=== PATIENT | female | born 1965 | race Caucasian/White ===

== ENCOUNTER → 2016-04-25 | Outpatient (CLI) | payer MEDICARE, OTHER ==
--- NOTE | 2016-04-25 12:30 | REPMRS ---
Patient History The patient states she has not had a clinical breast exam in over a year. Patient is postmenopausal and is nulliparous. No known family history of cancer. Benign ultrasound-guided core biopsy of the left breast, 1994. Digital Woman Screen Mammo: April 25, 2016 - Exam #: [id number] Bilateral CC and MLO view(s) were taken. Technologist: Nicole Sumner, Technologist Prior study comparison: December 26, 2014, digital woman screen mammo performed at [facility]. March 13, 2012, digital woman screen mammo performed at [facility]. December 30, 2010, bilateral bilat screen digital mammo performed at [facility]. FINDINGS: There are scattered fibroglandular densities. There has been no change in the appearance of the mammogram from the prior studies. There is a needle biopsy marker clip in the left breast. There is a mild amount of scattered fibroglandular density which is fairly symmetric. There is no interval development of dominant mass, architectural distortion, or clustered microcalcification suggestive of malignancy. ASSESSMENT: BI-RADS/ACR category 1 mammogram. Negative. Recommendation Routine screening mammogram in 1 year (for women over age 40). This mammogram was interpreted with the aid of an FDA-approved computer-aided dectection system. Electronically Signed By: Cosme Thorpe MD 04/25/16 [id number]
== END ==
LOC: M WHC 10:12
PROVIDERS: ATTEND Internal Medicine
DX: Z12.31 Encounter for screening mammogram for malignant neoplasm of breast (principal); Z78.0 Asymptomatic menopausal state; Z92.89 Personal history of other medical treatment

== ENCOUNTER 2016-04-30 17:32 | Emergency (ER) | payer OTHER, MEDICARE ==
[~2016-04-30] VITALS: Ht 152.4 cm; Wt 113.4 kg
[2016-04-30] MEDS ORDERED: VITA-115 PO (18:04)
[2016-04-30] MEDS ORDERED: MULT1TAB9 PO (18:04)
[2016-04-30] MEDS ORDERED: TYLE325T5 PO (18:05)
[2016-04-30 19:42] VITALS: BP 120/78
--- NOTE | 2016-05-01 11:12 | REP ---
RIGHT FIRST DIGIT: Four views of the right first digit are performed. There is no acute fracture or dislocation. There is severe joint space narrowing with mild subchondral sclerosis and spurring at the interphalangeal joint. IMPRESSION: Degenerative changes without fracture or dislocation. Signed by Gage Hightower MD 05/01/2016 01:56 P
== END 2016-04-30 19:45 | disposition home or self-care (01) ==
LOC: M ED 19:39
DX: S62.501A Fracture of unspecified phalanx of right thumb, initial encounter for closed fracture (principal); W22.8XXA Striking against or struck by other objects, initial encounter; Y92.89 Other specified places as the place of occurrence of the external cause; Y93.G1 Activity, food preparation and clean up; Y99.0 Civilian activity done for income or pay; Z88.8 Allergy status to other drugs, medicaments and biological substances; Z88.0 Allergy status to penicillin

== ENCOUNTER 2016-11-30 11:48 | Emergency (ER) | payer MEDICARE, OTHER ==
[~2016-11-30] VITALS: Ht 152.4 cm; Wt 113.6 kg
[~2016-11-30 11:48] MED LIST: MULT1TAB9 PO; TYLE325T5 PO; VITA-115 PO
[2016-11-30] MEDS ORDERED: MELO7.5T7 (11:57)
--- NOTE | 2016-11-30 12:48 | REP ---
Right foot series: Four views. History: Pain. Findings: Four views of the right foot show plantar and Achilles calcaneal spurring. Overall mineralization pattern is normal. No fracture or subluxation is seen. Impression: Heel spurs. Otherwise negative. Signed by Rian Thorpe MD 11/30/2016 01:26 P
--- NOTE | 2016-11-30 12:49 | REP ---
Right ankle series: Four views. History: Pain. Findings: Four views of the right ankle demonstrate Achilles and calcaneal spurring. Ankle mortise is intact. No fracture is seen. Impression: No acute bony abnormality. Heel spurs. Signed by Rian Thorpe MD 11/30/2016 01:27 P
[2016-11-30] MEDS ORDERED: NORCO, ANEXSIA 5/325MG TABLET (HYDROcodone/ACETAMINOPHEN) PO ONE (14:00)
[2016-11-30 14:42] VITALS: BP 142/63
== END 2016-11-30 14:46 | disposition home or self-care (01) ==
LOC: M ED 11:48
DX: M72.2 Plantar fascial fibromatosis (principal); Z87.891 Personal history of nicotine dependence

== ENCOUNTER → 2017-07-31 | Outpatient (CLI) | payer MEDICARE | LOC: M WHC 13:01 | DX: Z12.31 Encounter for screening mammogram for malignant neoplasm of breast (principal); Z78.0 Asymptomatic menopausal state; R92.1 Mammographic calcification found on diagnostic imaging of breast | CPT/HCPCS: 77067 ==

== ENCOUNTER 2017-08-07 21:45 | Emergency (ER) | payer OTHER, MEDICARE ==
[2017-08-07] MEDS: ACETAMINOPHEN TAB 650MG DOSE (2X325MG) PO (22:30)
[2017-08-07] MEDS: MORPHINE 10 MG/ML 1ML VIAL (J2270) IM (23:41)
== END 2017-08-08 00:39 | disposition home or self-care (01) ==
LOC: M ED 21:45
DX: S80.12XA Contusion of left lower leg, initial encounter (principal); W17.89XA Other fall from one level to another, initial encounter; Y92.89 Other specified places as the place of occurrence of the external cause; J45.909 Unspecified asthma, uncomplicated; Z87.891 Personal history of nicotine dependence; Z88.0 Allergy status to penicillin; Z88.1 Allergy status to other antibiotic agents; Z79.899 Other long term (current) drug therapy
CPT/HCPCS: J2270

== ENCOUNTER 2017-11-03 14:55 | Emergency (ER) | payer MEDICARE, OTHER ==
[2017-11-03] MEDS ORDERED: ALBUTEROL SULFATE 2.5 MG/0.5 ML INH NEB SOLN NEB (17:45)
[2017-11-03] MEDS: IBUPROFEN 600 MG TAB PO (19:15)
[2017-11-03] MEDS ORDERED: ACETAMINOPHEN TAB 650MG DOSE (2X325MG) As Ordered (19:21)
[2017-11-03] MEDS: ACETAMINOPHEN TAB 650MG DOSE (2X325MG) PO (19:26)
[2017-11-03] MEDS ORDERED: ACETAMINOPHEN 325 MG/10.15 ML UDC PO (19:30)
== END 2017-11-03 19:28 | disposition home or self-care (01) ==
LOC: M ED 14:55
DX: S40.012A Contusion of left shoulder, initial encounter (principal); W23.0XXA Caught, crushed, jammed, or pinched between moving objects, initial encounter; Y92.89 Other specified places as the place of occurrence of the external cause; J45.909 Unspecified asthma, uncomplicated; Z88.0 Allergy status to penicillin; Z88.8 Allergy status to other drugs, medicaments and biological substances; Z88.1 Allergy status to other antibiotic agents; Z88.5 Allergy status to narcotic agent; Z79.899 Other long term (current) drug therapy; Z79.51 Long term (current) use of inhaled steroids
CPT/HCPCS: 73030

== ENCOUNTER → 2018-01-31 | Outpatient (REF) | payer MEDICARE, SELFPAY, OTHER ==
[2018-02-02 08:06] LABS: RUBEOLA IgG ANTIBODY >300.0 AU/mL (Immune >29.9)
[2018-02-02 10:54] LABS: RUBELLA IgG QUALITATIVE SUSCEPTIBLE (IMMUNE)
== END ==
LOC: M SFHCLERA 16:04
DX: Z02.1 Encounter for pre-employment examination (principal)
CPT/HCPCS: 86762

== ENCOUNTER 2018-02-06 14:16 | Emergency (ER) | payer OTHER, SELFPAY | END 2018-02-06 16:58 | disposition home or self-care (01) | LOC: M ED 14:16 | DX: S80.02XA Contusion of left knee, initial encounter (principal); W19.XXXA Unspecified fall, initial encounter; Y92.9 Unspecified place or not applicable | CPT/HCPCS: 73564 ==

== ENCOUNTER → 2018-07-11 | Outpatient (CLI) | payer BC ==
[~2018-07-11] MED LIST changes: +GASTROGRAFIN SOLUTION 30ML (Q9963) As Ordered ONE; +IBUP-1022 PO; +ISOVUE-370 76% 100ML VIAL (Q9967) As Ordered ONE; +MELO7.5T7; +SING10TA32 PO; +SYMB16INH INH
--- NOTE | 2018-07-12 05:54 | REP ---
Clinical: Generalized abdominal pain. Technique: Axial images from the lung bases to the pubic symphysis with coronal and sagittal re-formations. Oral contrast administered prior to imaging as per protocol and without complication. Comparison: 01/25/2011. Findings: Lung bases are clear. Liver, spleen, pancreas, bilateral adrenal glands and kidneys are normal. Evidence for prior cholecystectomy noted. The enteric system including stomach, small, and large bowel is without obstruction or acute inflammatory process. Normal terminal ileum, cecum and appendix identified in the right lower quadrant. Few sigmoid diverticula noted without acute diverticulitis. Pelvis demonstrates normal bladder and evidence for prior hysterectomy. A 4.5 cm fat containing periumbilical hernia identified within abdominal wall defect of 1.5 cm. Abdominal aorta without aneurysm. Osseous structures demonstrate age-related changes without focal osseous abnormality. No ascites. No adenopathy. Impression: 1. 4.5 cm fat containing periumbilical hernia. 2. Few scattered sigmoid diverticula. 3. Evidence of prior cholecystectomy and hysterectomy. Electronically Signed by Luis A Sarabia MD 07/12/2018 05:45 A
== END ==
LOC: M RAD 11:56
PROVIDERS: ATTEND Surgery
DX: R10.84 Generalized abdominal pain (principal); K44.9 Diaphragmatic hernia without obstruction or gangrene; Z90.49 Acquired absence of other specified parts of digestive tract; Z90.79 Acquired absence of other genital organ(s)
CPT/HCPCS: 74176; Q9963

== ENCOUNTER → 2018-09-25 | Outpatient (CLI) | payer MEDICARE ==
[~2018-09-25] MED LIST changes: +ACET650T15 PO; +EQL400CA9 PO; -GASTROGRAFIN SOLUTION 30ML (Q9963) As Ordered ONE; -ISOVUE-370 76% 100ML VIAL (Q9967) As Ordered ONE; +MULTCAP PO
--- NOTE | 2018-09-25 16:14 | REP ---
BILATERAL SCREENING DIGITAL MAMMOGRAM WITH 3D TOMOSYNTHESIS: There are no palpable abnormalities or other breast complaints. The the patient states she has not had a clinical breast examination over a year. The the patient states she performs self-breast examinations 12 times per year. The Tyrer-Cuzick score is: 10.3% . Comparisons are 12/10/2009, 12/11/2012, 12/26/2014 and 07/31/2017. The breasts are almost entirely fatty.. There is no dominant mass, micro calcific cluster or architectural distortion that would indicate malignancy. There is a biopsy marking clip in the left breast. The patient had a benign ultrasound guided left breast biopsy in 1994. There are no additional findings on 3D tomosynthesiss. There is no change from the prior study. Impression: BIRADS/ACR category 1 mammogram. Negative. Recommendation: Routine annual screening mammography. This mammogram was interpreted with the aid of a FDA approved computer-aided detection system. A. Negative mammogram reports should not delay biopsy if a dominant or clinically suspicious mass is present. B. Not all breast cancers are identified by mammography or tomosynthesis. C. Adenosis and dense breasts may obscure an underlying neoplasm. Patient letter M1. Electronically Signed by Gage Brooks MD 09/25/2018 04:05 P
== END ==
LOC: M WHC 14:42
PROVIDERS: ATTEND Internal Medicine
DX: Z12.31 Encounter for screening mammogram for malignant neoplasm of breast (principal); Z86.018 Personal history of other benign neoplasm

== ENCOUNTER 2018-10-02 05:54 | Day surgery (SDC) | payer MEDICARE ==
[~2018-10-02] VITALS: Ht 152.4 cm; Wt 110.1 kg
[2018-10-02] MEDS ORDERED: LevoFLOXacin IV 500 MG in APPROPRIATE DILUENT 1 EA IV ONE (06:00)
[2018-10-02] MEDS ORDERED: PROPOFOL 200 MG/20 ML VIAL As Ordered ONE ×2 (07:13→07:14)
[2018-10-02] MEDS ORDERED: BUPIVACAINE HCL 0.25% 30 ML VIAL As Ordered ONE (07:14)
[2018-10-02] MEDS ORDERED: BUPIVACAINE LIPOSOME/PF 1.3% 20ML VIAL (13.3MG/ML)(EXPAREL)(C9290 PER1MG) As Ordered ONE (07:14)
[2018-10-02] MEDS ORDERED: dexameTHASONE 4 MG/ML 1ML VIAL (J1100) As Ordered ONE (07:15)
[2018-10-02] MEDS ORDERED: ROCURONIUM BROMIDE 50 MG/5 ML VIAL As Ordered ONE (07:15)
[2018-10-02] MEDS ORDERED: LIDOCAINE 2% INJ 100 MG/5 ML SDV (FOR ANES.) As Ordered ONE (07:15)
[2018-10-02] MEDS ORDERED: ONDANSETRON 4MG/2ML VIAL (J2405) As Ordered ONE (07:15)
[2018-10-02] MEDS ORDERED: fentaNYL 100 MCG/2 ML INJECTION (J3010) As Ordered ONE (07:16)
[2018-10-02] MEDS ORDERED: BUPIVACAINE/EPIN 0.25% 30 ML VIAL As Ordered ONE (07:16)
[2018-10-02] MEDS ORDERED: MIDAZOLAM INJ 2 MG/2 ML VIAL (J2250) As Ordered ONE (07:16)
[2018-10-02] MEDS ORDERED: KETOROLAC 60 MG/2 ML VIAL (J1885) As Ordered ONE (08:13)
[2018-10-02] MEDS ORDERED: ACETAMINOPHEN 1000MG 100ML IV BTL (OFIRMEV) (J0131 PER 10MG) As Ordered ONE (08:22)
[2018-10-02] MEDS ORDERED: SUGAMMADEX SODIUM 500 MG/5 ML VIAL (BRIDION) As Ordered ONE (08:29)
[2018-10-02] MEDS ORDERED: LR 1,000 ML IV SCH ×2 (08:45→09:15)
--- NOTE | 2018-10-02 08:58 | RO ---
DATE OF PROCEDURE: 10/02/2018 PREOPERATIVE DIAGNOSIS: Umbilical hernia. POSTOPERATIVE DIAGNOSIS: Incarcerated umbilical hernia. PROCEDURE: Repair of incarcerated umbilical hernia with mesh (ventral patch) SURGEON: Dr. Fuentes Ervin BELT SANDER STONE: ANESTHESIA: General endotracheal anesthesia. ESTIMATED BLOOD LOSS: 25 mL. FLUIDS: Crystalloid. PROCEDURE SUMMARY: The patient was brought to the operating room and was given general anesthesia. After adequate anesthesia and preoperative antibiotics were given, the patient was prepped and draped in the usual sterile fashion. Next, a supraumbilical incision was made with skin knife. Blunt dissection was carried down to fascia and down to the hernia sac itself which was mobilized off surrounding structures using a combination of blunt and sharp dissection. The hernia sac was transected at the level of fascia using the electrocautery. The omentum was attached to the hernia itself and this was ligated at its base with Vicryl ties and a portion of the omentum resected. The fascial defect was reinforced using a ventral patch which was placed into the peritoneal cavity, taking care to make sure that this was present circumferentially. The tails of the mesh were sutured superiorly and inferiorly with 0 Ethibond. The fascial defect then was closed with three [id number] 0 Ethibond sutures. Exparel was injected in the surrounding tissue surrounding the fascia in this area. In the subcutaneous tissue, Marcaine was injected throughout the skin and subcutaneous tissue. The dermis was brought together with 3-0 Vicryl and 4-0 Vicryl was used to approximate the skin with Steri-Strips and a dry sterile dressing. The patient was awakened from anesthesia, extubated and brought to the recovery room awake, alert and hemodynamically stable. Sponge and needle counts correct times two.
[2018-10-02] MEDS ORDERED: ONDANSETRON 4MG/2ML VIAL (J2405) IV PRN ×2 (09:00→09:15)
[2018-10-02] MEDS ORDERED: ACETAMINOPH W/CODEINE #3 TAB UD PO PRN (09:00)
[2018-10-02] MEDS ORDERED: METOCLOPRAMIDE INJ 10MG/2ML VIAL (J2765) IV PRN (09:15)
[2018-10-02] MEDS ORDERED: PERCOCET 5MG/325MG TAB PO PRN (09:15)
[2018-10-02] MEDS ORDERED: fentaNYL 100 MCG/2 ML INJECTION (J3010) IV PRN (09:15)
[2018-10-02 10:20] VITALS: BP 143/86
--- NOTE | 2018-10-03 07:40 | ECGEPIP ---
[facility] Test Date: 2018-10-02 Pat Name: DO GUY Department: Room: - Gender: Female Compliance Coordinator: HERBERTH : 1965 Requested By: Guerrero Cartwright Order Number: [id number] Reading MD: Jose De Jesus Arriaza Measurements Intervals [place] Rate: 65 P: 33 MD: 174 QRS: -20 QRSD: 113 T: -15 QT: 410 QTc: 428 Interpretive Statements Normal sinus rhythm Leftward axis In complete right bundle branch block Nonspecific repolarization abnormalities Comparison tracing not on file Electronically Signed on 10-03-2018 7:40:01 EDT by Jose De Jesus Arriaza
== END 2018-10-02 10:44 | disposition home or self-care (01) ==
LOC: M SDC 05:54
PROVIDERS: ATTEND Surgery
DX: K42.0 Umbilical hernia with obstruction, without gangrene (principal); F41.9 Anxiety disorder, unspecified; F40.240 Claustrophobia; M12.9 Arthropathy, unspecified; R29.898 Other symptoms and signs involving the musculoskeletal system; J45.909 Unspecified asthma, uncomplicated; R35.0 Frequency of micturition; Z88.1 Allergy status to other antibiotic agents; Z88.5 Allergy status to narcotic agent; Z88.8 Allergy status to other drugs, medicaments and biological substances; Z79.899 Other long term (current) drug therapy; Z87.820 Personal history of traumatic brain injury; Z90.710 Acquired absence of both cervix and uterus
CPT/HCPCS: 49587; 88302; 93005; C1781; C9290; J0131; J1100; J1885; J1956; J2250; J2405; J3010

== ENCOUNTER → 2018-10-15 | Outpatient (REF) | payer MEDICARE | LOC: M LAB REF 12:46 | PROVIDERS: ATTEND Surgery | DX: S31.105D Unspecified open wound of abdominal wall, periumbilic region without penetration into peritoneal cavity, subsequent encounter (principal) ==

== ENCOUNTER → 2019-09-09 | Outpatient (CLI) | payer MEDICARE ==
--- NOTE | 2019-09-09 14:00 | REP ---
REASON FOR EXAM: Clinically abnormal lung encinas. There are no prior chest CTs for comparison. The latest prior plain film examination is 05/10/2019, which was ordered secondary to coughing and wheezing and seen to be within normal limits. The lack of intravenous contrast decreases the sensitivity of the exam. Limited evaluation of the mediastinum and pulmonary walter show no gross abnormalities. There are no pleural or pericardial effusions. Limited evaluation of the imaged upper abdomen and imaged osseous structures show no gross abnormalities. Evaluation of the lung encinas shows no abnormal nodules, masses, or opacities. IMPRESSION: Limited CT examination shows no abnormality. Electronically Signed by Randolph Diana DO 09/09/2019 02:30 P
== END ==
LOC: M RAD 10:21
PROVIDERS: ATTEND Physician Assistant
DX: R91.8 Other nonspecific abnormal finding of lung field (principal)

== ENCOUNTER → 2019-11-08 | Outpatient (CLI) | payer MEDICARE ==
--- NOTE | 2019-11-08 13:49 | REPMRS ---
Patient History The patient states she had a clinical breast exam in October 2019. Family history of breast cancer at age 50 or over in maternal grandmother. Benign ultrasound-guided core biopsy of the left breast, 1994. 3D TOMOSYNTHESIS WAS PERFORMED. [facility] lifetime risk for breast cancer is 10.1%. Volpara density a. Digital Woman Screen Mammo: November 08, 2019 - Exam #: [id number] Bilateral CC and MLO view(s) were taken. Technologist: Petrona Calvin, Technologist Prior study comparison: September 25, 2018, bilateral digital woman screen mammo performed at [facility]. July 31, 2017, digital woman screen mammo performed at [facility]. FINDINGS: There are scattered fibroglandular densities. There has been no change in the appearance of the mammogram from the prior studies. There is a mild amount of residual fibroglandular tissue which is fairly symmetric. There is no interval development of dominant mass, architectural distortion, or clustered microcalcification suggestive of malignancy. Assessment: BI-RADS/ACR category 1 mammogram. Negative Mammogram. Recommendation Routine screening mammogram in 1 year (for women over age 40). This mammogram was interpreted with the aid of an FDA-approved computer-aided dectection system. Electronically Signed By: Gage Hightower MD 11/08/19 [id number]
== END ==
LOC: M WHC 12:49
PROVIDERS: ATTEND Family Medicine
DX: Z12.31 Encounter for screening mammogram for malignant neoplasm of breast (principal)

== ENCOUNTER → 2020-02-12 | Outpatient (CLI) | payer MEDICARE ==
--- NOTE | 2020-02-12 18:39 | REP ---
INDICATION: ABDOMINAL PAIN. COMPARISON: Chest radiograph 12/18/2019. TECHNIQUE: Supine and erect views of the abdomen and pelvis are performed. A PA view of the chest is performed. FINDINGS: There is no evidence of free intraperitoneal air. There is no evidence of small bowel obstruction. Moderate air and fecal material seen throughout the colon. Multiple metallic clips are seen in the right upper quadrant. There are degenerative changes of the lower lumbar spine. The single view of the chest shows no infiltrate in either lung. The heart is normal in size there is mild calcification of the thoracic aorta. IMPRESSION: Moderate fecal retention. No free air or obstruction. Lungs are clear. <Electronically signed by Gage Hightower > 02/12/20 [id number]
== END ==
LOC: M WUC 16:25
PROVIDERS: ATTEND Internal Medicine
DX: K59.00 Constipation, unspecified (principal); R10.9 Unspecified abdominal pain

== ENCOUNTER → 2020-02-27 | Outpatient (CLI) | payer MEDICARE | LOC: M LABSMTC 10:06 | PROVIDERS: ATTEND Anesthesiology | DX: Z01.812 Encounter for preprocedural laboratory examination (principal); Z20.828 Contact with and (suspected) exposure to other viral communicable diseases ==

== ENCOUNTER 2020-03-03 07:31 | Day surgery (SDC) | payer MEDICARE ==
[~2020-03-03] VITALS: Ht 152.4 cm; Wt 113.9 kg
[~2020-03-03 07:31] MED LIST changes: +NS 1,000 ML IV ONE
[2020-03-03] MEDS ORDERED: LIDOCAINE 2% 100MG/5ML SDV (FOR ANES.) As Ordered ONE (08:09)
[2020-03-03] MEDS ORDERED: propofoL 200 MG/20 ML VIAL As Ordered ONE (08:09)
--- NOTE | 2020-03-03 08:58 | ROOR ---
Patient Name: Renetta Inman Procedure Date: 03/03/2020 8:32 AM Date of : 1965 Age: 54 Room: [facility] Gender: Female Note Status: Finalized Procedure: Colonoscopy Indications: Screening for colorectal malignant neoplasm Providers: Dominguez MOY MD Referring MD: ADELINE HEART MD Requesting Provider: Medicines: Monitored Anesthesia Care Complications: No immediate complications. Procedure: Pre-Anesthesia Assessment: - The heart rate, respiratory rate, oxygen saturations, blood pressure, adequacy of pulmonary ventilation, and response to care were monitored throughout the procedure. The Colonoscope was introduced through the anus and advanced to the terminal ileum, with identification of the appendiceal orifice and IC valve. The colonoscopy was performed without difficulty. The patient tolerated the procedure well. The quality of the bowel preparation was good. Findings: Skin tags were found on perianal exam. Non-thrombosed internal hemorrhoids were found during retroflexion. The hemorrhoids were medium-sized. The entire examined colon appeared normal on direct and retroflexion views. Impression: - Perianal skin tags found on perianal exam. - Non-thrombosed internal hemorrhoids. - The entire examined colon is otherwise normal on direct and retroflexion views. - No specimens collected. Recommendation: - Repeat colonoscopy in 10 years for screening purposes. Procedure Code(s): --- Professional --- 39223, Colonoscopy, flexible; diagnostic, including collection of specimen(s) by brushing or washing, when performed (separate procedure) Diagnosis Code(s): --- Professional --- K64.4, Residual hemorrhoidal skin tags K64.8, Other hemorrhoids Z12.11, Encounter for screening for malignant neoplasm of colon CPT copyright 2019 [employer]. All rights reserved. The codes documented in this report are preliminary and upon gasoline service attendant review may be revised to meet current compliance requirements. Dominguez Moy MD Dominguez MOY MD 03/03/2020 8:58:41 AM Electronically signed by Dominguez MOY MD Number of Addenda: 0 Note Initiated On: 03/03/2020 8:32 AM Estimated Blood Loss: Estimated blood loss: none.
[2020-03-03 09:15] VITALS: BP 119/58
== END 2020-03-03 09:35 | disposition home or self-care (01) ==
LOC: M OPP 07:31
PROVIDERS: ATTEND Internal Medicine Gastroenterology
DX: Z12.11 Encounter for screening for malignant neoplasm of colon (principal); K64.8 Other hemorrhoids; K64.4 Residual hemorrhoidal skin tags

== ENCOUNTER → 2021-02-18 | Outpatient (CLI) | payer MEDICARE ==
[~2021-02-18] MED LIST changes: -NS 1,000 ML IV ONE
--- NOTE | 2021-02-18 15:49 | REPMRS ---
Patient History The patient states she had a clinical breast exam in November 2020. Family history of breast cancer at age 50 or over in maternal grandmother. Benign ultrasound-guided core biopsy of the left breast, 1994. Patient states no breast complaints today. Patient has signed MRS History Sheet. Digital Woman Screen Mammo: February 18, 2021 - Exam #: [id number] Bilateral CC and MLO view(s) were taken. Technologist: Rosetta Mak, Technologist Prior study comparison: November 08, 2019, bilateral digital woman screen mammo performed at [facility]. September 25, 2018, bilateral digital woman screen mammo performed at [facility]. FINDINGS: There are scattered fibroglandular densities. Screening. Digital screening (2D) mammography was performed bilaterally in the CC and MLO projections. Additionally, breast tomosynthesis (3D mammography) was performed bilaterally in the CC and MLO projections. Todays exam was compared to the prior exam/exams. By history, the patient has no complaints of a palpable breast abnormality or other significant breast complaints. The breasts are unchanged in size and shape. There are no ana-soft tissue densities or spiculated masses. There is no internal architectural distortion. Once again, stable benign appearing calcifications are seen.There are no suspicious naa-calcific clusters. Skin thickening or nipple retraction is not present. IMPRESSION: BI-RADS Category 2- Benign Findings. There is no evidence of malignant alteration of the breasts. Followup examination recommended in one year. The Volpara volumetric breast density category is B, there are scattered areas of fibroglandular densities. This mammogram was read with the assistance of [facility],an FDA approved computer aided detection system for mammography. The lifetime Tyrer-Cuzick score is 9.8 % Negative x-ray reports should not delay surgical consultation if a dominant or clinically suspicious mass is present. Not all breast cancers can be identified by mammography. Therefore, we recommend that you continue to perform regular breast self-examination and physical examination and then promptly contact your physician of any concerns or changes. Adenosis and dense breasts may obscure an underlying neoplasm. Assessment: BI-RADS/ACR category 2 mammogram. Benign Findings. Recommendation Routine screening mammogram of both breasts in 1 year. Electronically Signed By: Randolph Diana DO 02/18/21 [id number]
== END ==
LOC: M WHC 15:00
PROVIDERS: ATTEND Internal Medicine
DX: Z12.31 Encounter for screening mammogram for malignant neoplasm of breast (principal); Z80.3 Family history of malignant neoplasm of breast

== ENCOUNTER 2021-07-05 10:33 | Emergency (ER) | payer MEDICARE ==
[~2021-07-05] VITALS: Ht 152.4 cm; Wt 113.6 kg
[2021-07-05] MEDS ORDERED: PRED10TA2 (10:54)
[2021-07-05] MEDS ORDERED: ALBU8.5H (10:54)
[2021-07-05 13:42] LABS: BASO # 0.1 10^3/uL (0.0-0.2); BASO % 0.5 % (0.0-1.0); EOS % 0.3 % (0.0-3.0); HEMATOCRIT 41.3 % (36.0-47.0); HEMOGLOBIN 13.3 g/dl (12.0-15.5); LYMPH # 1.7 10^3/uL (1.5-5.0); LYMPH % 13.8 % (24.0-44.0); MEAN CORPUSCULAR HGB CONC 32.2 g/dl (32.0-36.5); MEAN CORPUSCULAR VOLUME 83.8 fl (80.0-96.0); MONO # 0.5 10^3/uL (0.0-0.8); NEUTROPHILS # 9.8 10^3/uL (1.5-8.5); NEUTROPHILS % 80.9 % (36.0-66.0); PLATELET COUNT, AUTOMATED 158 10^3/uL (150-450); RED BLOOD COUNT 4.93 10^6/uL (4.00-5.40); WHITE BLOOD COUNT 12.1 10^3/uL (4.0-10.0)
[2021-07-05 14:15] LABS: ALBUMIN 3.5 GM/DL (3.2-5.2); ALT/SGPT 22 U/L (12-78); BILIRUBIN,DIRECT < 0.1 MG/DL (0.0-0.2); BILIRUBIN,TOTAL 0.5 MG/DL (0.2-1.0); BLOOD UREA NITROGEN 12 MG/DL (7-18); CALCIUM LEVEL 9.7 MG/DL (8.5-10.1); CARBON DIOXIDE LEVEL 26 MEQ/L (21-32); CHLORIDE LEVEL 106 MEQ/L (98-107); CREATININE FOR GFR 0.69 MG/DL (0.55-1.30); GLOMERULAR FILTRATION RATE > 60.0 (>51); GLUCOSE, FASTING 141 MG/DL (70-100); LIPASE 193 U/L (73-393); POTASSIUM SERUM 6.6 MEQ/L (3.5-5.1); SODIUM LEVEL 136 MEQ/L (136-145); TOTAL PROTEIN 7.9 GM/DL (6.4-8.2)
[2021-07-05] MEDS ORDERED: PRED20TA PO (15:49)
[2021-07-05] MEDS ORDERED: BACL10TA2 PO (15:49)
[2021-07-05 16:04] VITALS: BP 167/70
== END 2021-07-05 16:20 | disposition home or self-care (01) ==
LOC: M ED 10:33
DX: M62.830 Muscle spasm of back (principal); J45.909 Unspecified asthma, uncomplicated; E66.9 Obesity, unspecified; Z79.899 Other long term (current) drug therapy; Z88.0 Allergy status to penicillin; Z88.1 Allergy status to other antibiotic agents; Z88.2 Allergy status to sulfonamides; Z88.5 Allergy status to narcotic agent; Z88.8 Allergy status to other drugs, medicaments and biological substances

== ENCOUNTER 2021-08-21 17:28 | Emergency (ER) | payer MEDICARE ==
[~2021-08-21] VITALS: Ht 152.4 cm; Wt 116.4 kg
[~2021-08-21 17:28] MED LIST changes: +ALBU8.5H; +BACL10TA2 PO; +PRED10TA2; +PRED20TA PO
[2021-08-21 20:12] VITALS: BP 150/78
== END 2021-08-21 20:14 | disposition home or self-care (01) ==
LOC: M ED 17:28
DX: R22.42 Localized swelling, mass and lump, left lower limb (principal); J45.909 Unspecified asthma, uncomplicated; Z79.51 Long term (current) use of inhaled steroids; Z88.0 Allergy status to penicillin; Z88.1 Allergy status to other antibiotic agents; Z88.2 Allergy status to sulfonamides; Z88.5 Allergy status to narcotic agent; Z88.8 Allergy status to other drugs, medicaments and biological substances

== ENCOUNTER → 2022-02-25 | Outpatient (CLI) | payer MEDICARE | LOC: M WHC 12-28 14:17 | PROVIDERS: ATTEND Internal Medicine | DX: Z12.31 Encounter for screening mammogram for malignant neoplasm of breast (principal) ==

== ENCOUNTER 2022-03-13 14:31 | Emergency (ER) | payer MEDICARE ==
[~2022-03-13] VITALS: Ht 152.4 cm; Wt 111.5 kg
[2022-03-13] MEDS ORDERED: NS 1,000 ML IV ONE (16:20)
[2022-03-13] MEDS ORDERED: MECLIZINE 25 MG TABLET PO ONE ×2 (16:20→20:55)
[2022-03-13 17:27] LABS: BASO % 0.4 % (0.0-1.0); EOS # 0.2 10^3/uL (0.0-0.5); EOS % 1.5 % (0.0-3.0); HEMATOCRIT 40.6 % (36.0-47.0); HEMOGLOBIN 12.6 g/dl (12.0-15.5); LYMPH # 1.9 10^3/uL (1.5-5.0); LYMPH % 18.9 % (24.0-44.0); MEAN CORPUSCULAR HEMOGLOBIN 26.4 pg (27.0-33.0); MEAN CORPUSCULAR VOLUME 85.1 fl (80.0-96.0); MONO # 0.5 10^3/uL (0.0-0.8); MONO % 5.2 % (2.0-8.0); NEUTROPHILS # 7.4 10^3/uL (1.5-8.5); NEUTROPHILS % 73.8 % (36.0-66.0); PLATELET COUNT, AUTOMATED 306 10^3/uL (150-450); RED BLOOD COUNT 4.77 10^6/uL (4.00-5.40)
[2022-03-13 17:39] LABS: INR 0.98; PROTHROMBIN TIME 13.2 SECONDS (12.5-14.5)
[2022-03-13 17:40] LABS: PARTIAL THROMBOPLASTIN TIME 26.1 SECONDS (24.8-34.2)
[2022-03-13 17:42] LABS: ALBUMIN 3.7 G/DL (3.2-5.2); ALKALINE PHOSPHATASE 110 U/L (46-116); ALT/SGPT 19 U/L (7.0-40); AST/SGOT 14 U/L (<34); BILIRUBIN,TOTAL 0.4 MG/DL (0.3-1.2); BLOOD UREA NITROGEN 9 MG/DL (9-23); CARBON DIOXIDE LEVEL 26 MMOL/L (20-31); CHLORIDE LEVEL 103 MMOL/L (98-107); CK-MB VALUE MASS < 1.0 NG/ML (<3.6); CPK CREATINE PHOSPHOKINASE 82 U/L (34-145); CREATININE FOR GFR 0.54 MG/DL (0.55-1.30); GLOMERULAR FILTRATION RATE > 60.0 (>51); GLUCOSE, FASTING 98 MG/DL (60-100); MB/CK RELATIVE INDEX 1.21 (< OR =4); POTASSIUM SERUM 3.8 MMOL/L (3.5-5.1); SODIUM LEVEL 138 MMOL/L (136-145); TOTAL PROTEIN 7.5 G/DL (5.7-8.2)
[2022-03-13 17:54] LABS: RSV AMPLIFICATION NEGATIVE (NEGATIVE)
[2022-03-13] MEDS ORDERED: LORazepam 2 MG/ML VIAL IV STA (18:59)
[2022-03-13] MEDS ORDERED: MECL-86 PO (20:58)
[2022-03-13 21:33] VITALS: BP 159/74
== END 2022-03-13 21:37 | disposition home or self-care (01) ==
LOC: M ED 14:31
DX: R42 Dizziness and giddiness (principal); H92.01 Otalgia, right ear; J45.909 Unspecified asthma, uncomplicated; Z90.710 Acquired absence of both cervix and uterus; Z90.49 Acquired absence of other specified parts of digestive tract; Z88.0 Allergy status to penicillin; Z88.1 Allergy status to other antibiotic agents; Z88.2 Allergy status to sulfonamides; Z88.6 Allergy status to analgesic agent; Z88.8 Allergy status to other drugs, medicaments and biological substances; Z79.899 Other long term (current) drug therapy; Z79.51 Long term (current) use of inhaled steroids
CPT/HCPCS: 70450; 70551; 71045; 80053; 81002; 82550; 82553; 84484; 85025; 85610; 85730; 87631; 93005; 96361; 96374; 99284; J2060

== ENCOUNTER 2022-06-24 10:53 | Emergency (ER) | payer MEDICARE ==
[~2022-06-24] VITALS: Ht 152.4 cm; Wt 118.7 kg
[~2022-06-24 10:53] MED LIST changes: +MECL-86 PO; +MONT-5 PO; -SING10TA32 PO
[2022-06-24] MEDS ORDERED: methylPREDNISolone 125MG 2ML VIAL IV ONE (12:30)
[2022-06-24] MEDS ORDERED: LIDOCAINE 5% (LIDODERM) PATCH TD ONE (12:30)
[2022-06-24] MEDS ORDERED: LEVALBUTEROL 1.25MG 0.5ML CONCENTRATE NEB NEB PRN (12:35)
[2022-06-24] MEDS ORDERED: LEVALBUTEROL HFA 45MCG/ACT 15GM INHALER INH STA (12:46)
[2022-06-24 12:55] LABS: VENOUS HCO3 26.5 MMOL/L (23.0-27.0); VENOUS O2 SATURATION 95.8 % (60.0-80.0); VENOUS PARTIAL PRESSURE CO2 45.8 mmHg (38.0-50.0); VENOUS PARTIAL PRESSURE O2 82.6 mmHg (30.0-50.0); VENOUS PH 7.381 UNITS (7.330-7.430); VENOUS STANDARD HCO3 25.3 MMOL/L
[2022-06-24 13:05] LABS: BASO % 0.4 % (0.0-1.0); EOS # 0.2 10^3/uL (0.0-0.5); EOS % 1.9 % (0.0-3.0); HEMATOCRIT 39.6 % (36.0-47.0); HEMOGLOBIN 12.6 g/dl (12.0-15.5); LYMPH # 1.8 10^3/uL (1.5-5.0); LYMPH % 17.8 % (24.0-44.0); MEAN CORPUSCULAR HEMOGLOBIN 26.4 pg (27.0-33.0); MEAN CORPUSCULAR HGB CONC 31.8 g/dl (32.0-36.5); MONO # 0.7 10^3/uL (0.0-0.8); MONO % 6.5 % (2.0-8.0); NEUTROPHILS # 7.4 10^3/uL (1.5-8.5); PLATELET COUNT, AUTOMATED 295 10^3/uL (150-450); RED BLOOD COUNT 4.77 10^6/uL (4.00-5.40); WHITE BLOOD COUNT 10.1 10^3/uL (4.0-10.0)
[2022-06-24] MEDS ORDERED: guaiFENesin ER 600 MG TAB PO STA (13:13)
[2022-06-24] MEDS ORDERED: BENZONATATE 100MG CAPSULE PO ONE (13:15)
[2022-06-24] MEDS ORDERED: methylPREDNISolone 125MG 2ML VIAL IM ONE (13:15)
[2022-06-24 13:31] LABS: LIPASE 45 U/L (12-53)
[2022-06-24 13:33] LABS: ALBUMIN 3.2 G/DL (3.2-5.2); ALKALINE PHOSPHATASE 100 U/L (46-116); ALT/SGPT 21 U/L (7.0-40); AST/SGOT 10 U/L (<34); BILIRUBIN,DIRECT 0.1 MG/DL (<0.4); BILIRUBIN,TOTAL 0.4 MG/DL (0.3-1.2); TOTAL PROTEIN 6.6 G/DL (5.7-8.2)
[2022-06-24 14:16] LABS: CK-MB VALUE MASS < 1.0 NG/ML (<3.6); CPK CREATINE PHOSPHOKINASE 55 U/L (34-145); MB/CK RELATIVE INDEX 1.81 (< OR =4)
[2022-06-24 15:09] LABS: ERYTHROCYTE SEDIMENTATION RATE 60 mm/hr (0-30)
[2022-06-24] MEDS ORDERED: PRED20TA PO (15:29)
[2022-06-24] MEDS ORDERED: ASPE4PAD TOP (15:29)
[2022-06-24] MEDS ORDERED: LEVAINH INH (15:29)
[2022-06-24] MEDS ORDERED: BENZ200C70 PO (15:29)
[2022-06-24] MEDS ORDERED: MUCI1TAB16 PO (15:37)
[2022-06-24 15:39] VITALS: BP 145/83
== END 2022-06-24 15:56 | disposition home or self-care (01) ==
LOC: M ED 12:01
DX: R05.9 Cough, unspecified (principal); R07.89 Other chest pain; F17.200 Nicotine dependence, unspecified, uncomplicated; Z88.0 Allergy status to penicillin; Z88.2 Allergy status to sulfonamides; Z88.6 Allergy status to analgesic agent; Z88.8 Allergy status to other drugs, medicaments and biological substances; Z88.1 Allergy status to other antibiotic agents; Z79.51 Long term (current) use of inhaled steroids; Z79.899 Other long term (current) drug therapy
CPT/HCPCS: 71046; 76705; 80047; 80076; 82550; 82553; 82803; 83690; 84484; 85025; 85652; 86140; 87486; 87581; 87633; 87798; 93005; 94640; 96372; 96374; 99284; J2930

== ENCOUNTER → 2022-10-18 | Outpatient (CLI) | payer MEDICARE ==
[~2022-10-18] MED LIST changes: +ASPE4PAD TOP; +BENZ200C70 PO; +LEVAINH INH; +METHACHOLINE KIT INH ONE; +MUCI1TAB16 PO
== END ==
LOC: M CARPUL 08:41
PROVIDERS: ATTEND Nurse Practitioner Adult Health
DX: R06.02 Shortness of breath (principal)
CPT/HCPCS: 94070; 95070; J7674

== ENCOUNTER → 2022-10-25 | Outpatient (REF) | payer MEDICARE ==
[~2022-10-25] MED LIST changes: -METHACHOLINE KIT INH ONE
== END ==
LOC: M LAB REF 17:27
PROVIDERS: ATTEND Nurse Practitioner Adult Health
DX: R05.9 Cough, unspecified (principal)

== ENCOUNTER → 2022-11-07 | Outpatient (REF) | payer MEDICARE | LOC: M LAB REF 16:58 | PROVIDERS: ATTEND Nurse Practitioner Adult Health | DX: R05.9 Cough, unspecified (principal) ==

== ENCOUNTER 2022-12-21 14:36 | Emergency (ER) | payer MEDICARE ==
[~2022-12-21] VITALS: Ht 152.4 cm; Wt 110.6 kg
[2022-12-21] MEDS ORDERED: methocarbamoL 500 MG TAB PO ONE (16:45)
[2022-12-21] MEDS ORDERED: ACETAMINOPHEN 500 MG TAB PO ONE (16:45)
[2022-12-21] MEDS ORDERED: ACET-716 PO (18:54)
[2022-12-21 19:07] VITALS: BP 148/80; TEMP 97.3; O2SAT 98
== END 2022-12-21 19:16 | disposition home or self-care (01) ==
LOC: M ED 14:36
DX: S22.080A Wedge compression fracture of T11-T12 vertebra, initial encounter for closed fracture (principal); M47.816 Spondylosis without myelopathy or radiculopathy, lumbar region; M79.601 Pain in right arm; M79.602 Pain in left arm; W10.8XXA Fall (on) (from) other stairs and steps, initial encounter; Y92.009 Unspecified place in unspecified non-institutional (private) residence as the place of occurrence of the external cause; J45.909 Unspecified asthma, uncomplicated; Z88.0 Allergy status to penicillin; Z88.2 Allergy status to sulfonamides; Z88.8 Allergy status to other drugs, medicaments and biological substances; Z88.1 Allergy status to other antibiotic agents; Z88.6 Allergy status to analgesic agent; Z88.5 Allergy status to narcotic agent

== ENCOUNTER → 2023-03-02 | Outpatient (CLI) | payer MEDICARE ==
[~2023-03-02] MED LIST changes: +ACET-716 PO
== END ==
LOC: M WHC 14:22
PROVIDERS: ATTEND Internal Medicine
DX: Z12.31 Encounter for screening mammogram for malignant neoplasm of breast (principal)

== ENCOUNTER → 2023-06-19 | Outpatient (CLI) | payer MEDICARE | LOC: M SOG 08:26 | PROVIDERS: ATTEND Orthopaedic Surgery | DX: M25.562 Pain in left knee (principal) ==

== ENCOUNTER 2023-07-17 20:27 | Emergency (ER) | payer MEDICARE ==
[~2023-07-17] VITALS: Ht 152.4 cm; Wt 113.6 kg
[2023-07-17] MEDS ORDERED: ACET-897 PO (20:39)
[2023-07-18] MEDS ORDERED: OMEP-173 (00:03)
[2023-07-18] MEDS ORDERED: ASPE4PAD TOP (01:26)
[2023-07-18] MEDS: ACETAMINOPHEN 325 MG TAB PO ONE (01:31)
[2023-07-18] MEDS: LIDOCAINE 5% (LIDODERM) PATCH TD ONE (01:32)
[2023-07-18 05:47] VITALS: BP 144/68; TEMP 97.8; O2SAT 98
== END 2023-07-18 05:50 | disposition home or self-care (01) ==
LOC: M ED 20:27
DX: M54.31 Sciatica, right side (principal); M51.37 Other intervertebral disc degeneration, lumbosacral region; K21.9 Gastro-esophageal reflux disease without esophagitis; J45.909 Unspecified asthma, uncomplicated; Z88.0 Allergy status to penicillin; Z88.1 Allergy status to other antibiotic agents; Z88.2 Allergy status to sulfonamides; Z88.5 Allergy status to narcotic agent; Z88.6 Allergy status to analgesic agent; Z88.8 Allergy status to other drugs, medicaments and biological substances; Z79.1 Long term (current) use of non-steroidal anti-inflammatories (NSAID); Z79.52 Long term (current) use of systemic steroids; Z79.899 Other long term (current) drug therapy

== ENCOUNTER → 2023-07-21 | Outpatient (CLI) | payer MEDICARE ==
[~2023-07-21] MED LIST changes: +ACET-897 PO; +OMEP-173
== END ==
LOC: M SOG 08:14
PROVIDERS: ATTEND Orthopaedic Surgery
DX: M54.50 Low back pain, unspecified (principal)

== ENCOUNTER → 2023-08-16 | Outpatient (REF) | payer MEDICARE ==
[2023-08-16 14:19] LABS: HEMOGLOBIN A1c 6.1 % (4.0-6.0)
[2023-08-16 14:25] LABS: ALBUMIN 3.7 G/DL (3.2-5.2); ALKALINE PHOSPHATASE 104 U/L (46-116); ALT/SGPT 16 U/L (7.0-40); AST/SGOT < 8 U/L (<34); BILIRUBIN,TOTAL 0.4 MG/DL (0.3-1.2); BLOOD UREA NITROGEN 12 MG/DL (9-23); CALCIUM LEVEL 9.8 MG/DL (8.5-10.1); CARBON DIOXIDE LEVEL 30 MMOL/L (20-31); CHLORIDE LEVEL 104 MMOL/L (98-107); CHOLESTEROL LEVEL 195 MG/DL (<200); CHOLESTEROL RISK RATIO 3.31 (<5); CREATININE FOR GFR 0.56 MG/DL (0.55-1.30); GLOMERULAR FILTRATION RATE > 60.0 (>51); GLUCOSE, FASTING 105 MG/DL (60-100); HDL CHOLESTEROL 58.9 MG/DL (>40); LDL CHOLESTEROL 108.3 MG/DL (<100); NON-HDL-C 136.1 MG/DL; POTASSIUM SERUM 4.2 MMOL/L (3.5-5.1); SODIUM LEVEL 140 MMOL/L (136-145); TRIGLYCERIDES LEVEL 139 MG/DL (<150)
== END ==
LOC: M LABDRWAD 12:37
PROVIDERS: ATTEND Internal Medicine
DX: R73.01 Impaired fasting glucose (principal); E78.5 Hyperlipidemia, unspecified

== ENCOUNTER → 2023-08-26 | Outpatient (CLI) | payer MEDICARE | LOC: M RAD 12:44 | PROVIDERS: ATTEND Orthopaedic Surgery | DX: M47.816 Spondylosis without myelopathy or radiculopathy, lumbar region (principal); M51.36 Other intervertebral disc degeneration, lumbar region ==

== ENCOUNTER → 2024-03-14 | Outpatient (REF) | payer MEDICARE ==
[~2024-03-14] MED LIST changes: +LEVA15HF2 INH; -LEVAINH INH
[2024-03-14 14:35] LABS: ALBUMIN 3.7 G/DL (3.2-5.2); ALKALINE PHOSPHATASE 98 U/L (35-104); ALT/SGPT 19 U/L (7.0-40); AST/SGOT 10 U/L (<34); BILIRUBIN,TOTAL 0.5 MG/DL (0.3-1.2); BLOOD UREA NITROGEN 12 MG/DL (9-23); CALCIUM LEVEL 9.4 MG/DL (8.3-10.6); CARBON DIOXIDE LEVEL 29 MMOL/L (20-31); CHLORIDE LEVEL 101 MMOL/L (98-107); CHOLESTEROL LEVEL 235 MG/DL (<200); CHOLESTEROL RISK RATIO 3.47 (<5); CREATININE FOR GFR 0.58 MG/DL (0.55-1.30); GLOMERULAR FILTRATION RATE > 60.0 (>45); GLUCOSE, FASTING 101 MG/DL (74-106); HDL CHOLESTEROL 67.7 MG/DL (>40); LDL CHOLESTEROL 142.7 MG/DL (<100); NON-HDL-C 167.3 MG/DL; POTASSIUM SERUM 4.6 MMOL/L (3.5-5.1); SODIUM LEVEL 140 MMOL/L (136-145); TOTAL PROTEIN 7.6 G/DL (5.7-8.2); TRIGLYCERIDES LEVEL 123 MG/DL (<150)
[2024-03-14 14:40] LABS: HEMOGLOBIN A1c 6.2 % (4.0-6.0)
== END ==
LOC: M LABDRWAD 12:41 → M LAB REF 12:41
PROVIDERS: ATTEND Internal Medicine
DX: E78.5 Hyperlipidemia, unspecified (principal); R73.01 Impaired fasting glucose

== ENCOUNTER → 2024-06-11 | Outpatient (CLI) | payer MEDICARE | LOC: M WHC 13:11 | PROVIDERS: ATTEND Internal Medicine | DX: Z12.31 Encounter for screening mammogram for malignant neoplasm of breast (principal) ==